=== PATIENT | female | born 2000 | race Caucasian/White ===

== ENCOUNTER 2022-08-19 07:14 | Emergency (ER) | payer OTHER, SELFPAY ==
[2022-08-19 07:17] VITALS: BP 130/85; PULSE 122; RESP 19; TEMP 36.6; O2SAT 100; BMI 25.7
--- NOTE | 2022-08-19 07:48 | ECG_ITS ---
Test Reason : anxiety Blood Pressure : / mmHG Vent. Rate : 153 BPM Atrial Rate : 153 BPM P-R Int : 126 ms QRS Dur : 098 ms QT Int : 324 ms P-R-T Axes : 075 064 070 degrees QTc Int : 517 ms Sinus tachycardia Incomplete right bundle branch block Nonspecific ST abnormality Abnormal ECG No previous ECGs available Referred By: Jorge Brown Electronically Signed By:Darrion Koehler
--- NOTE | 2022-08-19 07:50 | ED.ANXIETY ---
HPI - Anxiety General Chief Complaint: Anxiety Stated Complaint: panic attack Time Seen by Provider: 08/19/22 07:18 Source: patient Mode of arrival: ambulatory Limitations: no limitations History of Present Illness HPI narrative: 21-year-old female with no major medical problems presents with anxiety and panic. Her symptoms include feeling like her throat is closing, difficulty breathing, palpitations, anxious notice. Symptoms are severe. She has had this once before. There has been no clear relieving or exacerbating features. She does have significant stress including work and school. She denies drugs. She does drink alcohol from time to time. She denies suicidal or homicidal ideation. She is here with her significant other at this time. MD complaint: anxiety, heart racing and shortness of breath Onset (ago): minute(s) (30) Symptoms: dyspnea, palpitations and sense of impending doom Severity: severe Quality: constant Place: home History of similar episodes: Yes Provoking factors: none known Relieving factors: nothing Exacerbating factors: nothing Related Data Allergies Allergy/AdvReac Type Severity Reaction Status Date / Time No Known Allergies Allergy Verified 08/19/22 07:16 [facility] Social History Social History Advance Directives: No Advance Directives Information Provided: No Physical Exam Vital Signs: Vital Signs: Last Vital Signs Temp 98 F 08/19/22 07:17 Pulse 122 H 08/19/22 07:17 Resp 19 08/19/22 07:17 BP 130/85 08/19/22 07:17 Pulse Ox 100 08/19/22 07:17 O2 Del Method Room Air 08/19/22 07:17 BMI result Body Mass Index 25.7 GEN: Well developed, + acute distress, alert, oriented HEENT: Normocephalic, atraumatic, normal external ears, nose appears normal, no oropharyngeal edema or exudates Eyes: Normal to appearance Neck: Supple, no lymphadenopathy Respiratory: Talks in complete sentences, no respiratory distress, clear to auscultation bilaterally Cardiovascular: Regular rate and rhythm, no murmurs rubs or gallops tachycardic Abdomen: Soft, nontender, nondistended, no guarding, no rebound Back: No CVA tenderness Extremities: No clubbing cyanosis or edema Neurologic: No focal neurologic deficits, cranial nerves 2-12 intact, strength is 5/5 bilaterally, gait normal Skin: No rash Psych: Anxious nervous, tearful Course Course Course Narrative: 21-year-old female presents with what appears to be a panic attack. The inciting event is not entirely clear although she does describe significant amount of stress in life. On my evaluation she was tearful, anxious appearing, rapid speech and tachycardic. The respiratory examination was benign. Will order routine laboratory analysis to rule out other possible causes of her symptoms including anemia, thyroid dysfunction, electrolyte abnormality, renal dysfunction and other metabolic etiologies. Also will treat a patient with Ativan for her some Tums. Medications Administered Discontinued Medications Generic Name Dose Route Start Last Admin Trade Name Freq PRN Reason Stop Dose Admin Lorazepam 1 mg 08/19/22 07:48 08/19/22 07:58 Lorazepam 1 Mg Tablet PO 08/19/22 07:49 1 mg ONCE ONE Administration Medical Decision Making Medical Decision Making [facility] Narrative: 21-year-old female presents with feeling like her throat is tight, palpitations, short of breath, anxious this. My evaluation, patient was anxious appearing and tachycardic. The rest of her examination was benign. Patient has had 1 such attack in the past. There is no definitive etiology for the onset of her symptoms although she describes as significant stress at baseline. Patient denies suicidal homicidal ideation. Will check lab testing, EKG. Differential Diagnosis Differential Diagnoses: The differential diagnosis associated with the presentation includes (Anxiety, panic, anemia, electrolyte abnormality, renal dysfunction, thyroid dysfunction) Acute anxiety Admission/Observation Consideration of admission/observation: Escalation of care including admission/observation considered Lab Data [facility] Lab Attestation statement: I reviewed the patient's lab results. Independent Interpretation I performed an independent interpretation of an: EKG (Sinus tachycardia heart rate 153, RSR prime pattern suggestive of an incomplete right bundle-branch block, nonspecific ST T wave changes likely rate related) Independent Historian Clinical information obtained from an independent historian. History obtained from or confirmed by: Friend Tests considered The following testing was considered but not selected: Chest X Prescription Management I considered prescription management with: Other (Anxiety medications) Discharge Plan Discharge Clinical Impression: Acute anxiety, Panic disorder Instructions: Panic Disorder (ED), Anxiety (ED)
[2022-08-19] MEDS: LORazepam 1 MG TABLET PO (07:58)
[2022-08-19 08:18] LABS: MANUAL DIFF FLAG NO
[2022-08-19 08:21] LABS: Basophils Absolute Auto 0.1 X10*3/uL (0.0-0.2); Basophils Percent Auto 0.7 % (0-2); Eosinophils Absolute Auto 0.1 X10*3/uL (0.0-0.4); Eosinophils Percent Auto 0.9 % (0-4); Hematocrit 36.5 % (37.0-47.0); Hemoglobin 13.4 g/dl (12.0-16.0); Imm Gran Abs Auto 0.03 X10*3/uL (0.00-0.03); Imm Gran Pct Auto 0.3 % (0.0-0.4); Lymphocytes Absolute Auto 2.6 X10*3/uL (1.2-4.9); Lymphocytes Percent Auto 28.4 % (20-40); Mean Corpuscular HGB Conc 36.7 g/dl (31.0-35.0); Mean Corpuscular Hemoglobin 32.4 pg (27.0-33.0); Mean Corpuscular Volume 88.2 fL (80.0-98.0); Mean Platelet Volume 10.2 fL (9.4-12.3); Monocytes Absolute Auto 0.7 X10*3/uL (0.1-1.2); Monocytes Percent Auto 7.7 % (2-11); Neutrophils Absolute Auto 5.6 x10*3/uL (2.0-8.3); Platelet Count 303 X10*3/uL (160-400); Red Blood Count 4.14 X10*6/uL (4.20-5.50); Red Cell Distribution Width 11.9 % (11.0-16.0)
--- NOTE | 2022-08-19 08:25 | PC.NURSE ---
Patient on stretcher with SO at bedside. This morning patient woke up and in her head saw her words being slurred; according to SO patient did not have any slurred speech this morning. Patient feels that there is something wrong and that it's too late to fix what is wrong. This nurse did some breathing exercises with patient in an attempt to slow her breathing down with some effect.
--- NOTE | 2022-08-19 08:54 | PC.NURSE ---
Patient vomited the water that she has been drinking. No medication noted in vomit. Patient starting to look more calm. Ambulated to bathroom.
[2022-08-19 09:03] LABS: Anion Gap 19 (12-20); Blood Urea Nitrogen 9 mg/dL (9-16); Calcium 9.4 mg/dL (8.4-10.2); Carbon Dioxide 17 mmol/L (22-29); Chloride 106 mmol/L (96-108); Creatinine Clr Calc Pharmacy 87.8; Estimated Glomerular Filt Rate > 60; Glucose Random 136 mg/dL (60-115); Sodium 139 mmol/L (135-145)
[2022-08-19 09:09] LABS: Appearance Urine Clear; Color Urine Yellow; Glucose Urine UA Negative (Negative); Leukocyte Esterase Urine Negative (Negative); Nitrite Urine Negative (Negative); PH 7.5 (5.0-9.0); Specific Gravity - Urine <= 1.005 (1.005-1.025); UMIC TRIGGER UACC YES; Urine Blood Large (3+) (Negative); Urine Ketones Negative (Negative); Urine Protein Negative (Neg-Trace)
[2022-08-19 09:10] LABS: UPreg QC Valid YES; Urine Pregnancy NEGATIVE (NEGATIVE)
[2022-08-19 09:20] LABS: TSH reflex Free T4 1.42 uIU/mL (0.32-4.0)
[2022-08-19 09:31] LABS: Bacteria Urine None Seen (None Seen); Hyaline Casts Urine 0-2 /LPF (0-2); RBC Urine 0-2 /HPF (0-2); Squamous Epithelial Cell Urine 0-2 /HPF (0-2); WBC Urine 0-5 /HPF (0-5)
[2022-08-19] MEDS: Potassium Chloride Packet 20 MEQ PACKET 40 MEQ PO (09:34)
--- NOTE | 2022-08-19 09:45 | PC.NURSE ---
Patient was able to ambulate to bathroom without issue, patient calmly sitting on stretcher at this time. Potassium noted to be low and patient was given oral replacement.
[2022-08-19 10:20] VITALS: BP 118/55; PULSE 99; RESP 15; TEMP 36.8; O2SAT 100
== END 2022-08-19 10:24 | disposition home or self-care (01) ==
PROVIDERS: Emergency Provider Emergency Medicine
DX: F41.1 Generalized anxiety disorder (principal); F43.0 Acute stress reaction; F41.0 Panic disorder [episodic paroxysmal anxiety]; R00.0 Tachycardia, unspecified; Z79.899 Other long term (current) drug therapy
CPT/HCPCS: 36415; 80048; 81001; 81025; 84443; 85025; 93005; 99283; 99284